=== PATIENT | male | born 1975 | race Hispanic/Latino ===

== ENCOUNTER 2020-02-12 09:55 | Emergency (ER) | payer OTHER ==
[2020-02-12] MEDS ORDERED: ASPIRIN 325 MG TAB PO ONE (10:00)
[2020-02-12 11:50] LABS: BUN/Creatinine Ratio 20; Blood Urea Nitrogen 16 mg/dL (9-20); Calcium 9.8 mg/dL (8.4-10.2); Hemolysis Index 5
[2020-02-12 12:12] LABS: Basophils # (Auto) 0.1 K/mm3 (0.0-0.1); Basophils % (Auto) 1.4 % (0.0-1.8); Eosinophils # (Auto) 0.1 K/mm3 (0.0-0.4); Eosinophils % (Auto) 2.4 % (0.0-4.3); Hematocrit 46.7 % (35.5-45.6); Mean Corpuscular HGB Conc 34 % (32-34); Mean Corpuscular Volume 92 fl (84-94); Monocytes # (Auto) 0.5 K/mm3 (0.0-0.8); Platelet Count 236 K/mm3 (140-440); Red Cell Distribution Width 12.9 % (13.2-15.2)
--- NOTE | 2020-02-12 12:29 | XRay Report ---
CHEST 2 VIEWS INDICATION: Chest Pain. COMPARISON: None. FINDINGS: Support devices: None. Heart: Within normal limits. Lungs/Pleura: No acute air space or interstitial disease. No significant pleural effusion. IMPRESSION: No acute findings. Signer Name: Arvind Apple MD Signed: 02/12/2020 12:24 PM Workstation Name: [id number]
--- NOTE | 2020-02-12 12:59 | Emergency Department Report ---
ED Chest Pain HPI - General Chief Complaint: Chest Pain Stated Complaint: CHEST PAINS Time Seen by Provider: 02/12/20 12:44 Source: patient Mode of arrival: Ambulatory Limitations: No Limitations - History of Present Illness Initial Comments: 44-year-old male states that he had approximately 2 hours of intermittent pinching sensation in his left breast. He denied any radiation. He states he had some slight heartburn as well. He denied nausea or vomiting. He denied dyspnea or sweating. He had no shortness of breath. He stated that the symptoms were not related to his breathing at all. He has not had recent cough or fever. Patient is an officer at a nearby facility. He states that he has been working out a lot for his physical coming up. He last worked out over the weekend. He states that his exercise tolerance was good. He does report that he has some slight tenderness in the left chest related to the workout perhaps. Patient denies any recent traveling. Has had no leg pain or swelling. He denies a family history of coronary artery disease or venous thromboembolism.. Patient states the chest sensation has resolved at the time of my encounter. MD Complaint: chest pain -: Gradual, hour(s) Onset: during rest Pain Location: left chest Pain Radiation: none Severity: mild, moderate Quality: other (A pinching sensation) Consistency: intermittent Improves With: nothing Worsens With: nothing re: denies: nausea, vomting, diaphoresis, dyspnea, sense of impending doom Treatments Prior to Arrival: none Aspirin use within the Past 7 Days: (0) No - Related Data Allergies Allergy/AdvReac Type Severity Reaction Status Date / Time No Known Allergies Allergy Unverified 02/12/20 10:00 Heart Score - HEART Score History: Slightly suspicious EKG: Normal Age: 45-65 Risk factors: 1-2 risk factors Troponin: < normal limit HEART Score: 2 - Critical Actions Critical Actions: 0-3 pts:0.9-1.7%risk of adverse cardiac event.Candidate for discharge ED Review of Systems ROS: Stated complaint: CHEST PAINS Other details as noted in HPI Constitutional: denies: chills, fever Eyes: denies: eye pain, eye discharge, vision change ENT: denies: ear pain, throat pain Respiratory: denies: cough, shortness of breath, wheezing Cardiovascular: chest pain. denies: palpitations Endocrine: no symptoms reported Gastrointestinal: denies: abdominal pain, nausea, diarrhea Genitourinary: denies: urgency, dysuria Musculoskeletal: denies: back pain, joint swelling, arthralgia Skin: denies: rash, lesions Neurological: denies: headache, weakness, paresthesias Psychiatric: denies: anxiety, depression Hematological/Lymphatic: denies: easy bleeding, easy bruising ED Past Medical Hx - Past Medical History Previous Medical History?: No - Surgical History Past Surgical History?: No - Family History Family history: no significant - Social History Substance Use Type: None ED Physical Exam - General Limitations: No Limitations General appearance: alert, in no apparent distress - Head Head exam: Present: atraumatic, normocephalic - Eye Eye exam: Present: normal appearance. Absent: scleral icterus - ENT ENT exam: Present: mucous membranes moist - Neck Neck exam: Present: normal inspection - Respiratory Respiratory exam: Present: normal lung sounds bilaterally, chest wall tenderness (Mild about the anterior shoulder girdle area). Absent: respiratory distress - Cardiovascular Cardiovascular Exam: Present: regular rate, normal rhythm. Absent: systolic murmur, diastolic murmur, rubs, gallop - GI/Abdominal GI/Abdominal exam: Present: soft, normal bowel sounds. Absent: distended, tenderness, guarding, rebound - Rectal Rectal exam: Present: deferred - Extremities Exam Extremities exam: Present: normal inspection, normal capillary refill. Absent: pedal edema, calf tenderness - Back Exam Back exam: Present: normal inspection - Neurological Exam Neurological exam: Present: alert, oriented X3, CN II-XII intact. Absent: motor sensory deficit - Psychiatric Psychiatric exam: Present: normal affect, normal mood - Skin Skin exam: Present: warm, dry, intact, normal color. Absent: rash ED Course Vital Signs 02/12/20 02/12/20 09:58 13:09 Temperature 97.9 F Pulse Rate 73 64 Respiratory 18 17 Rate Blood Pressure 146/97 Blood Pressure 130/86 [Left] O2 Sat by Pulse 96 99 Oximetry - Reevaluation(s) Reevaluation #1: I recommended to Mr. Gutierrez that he be admitted for a stress test. He has never had one before. He is low risk by heart score and PRIYANK for a cardiac event. However I have explained to him the limits of emergency department testing in this setting. I have asked him to be admitted. He declines. He has full mental capacity to make his own decisions regarding his disposition. I have strongly recommended close follow-up. I have also explained to him that he should return to the emergency department should he have persistent symptoms. Thus, I am not going to require him to sign out AGAINST MEDICAL ADVICE. 02/12/20 13:48 PRIYANK score - Priyank Score Age > 65: (0) No Aspirin use within the Past 7 Days: (0) No 3 or more CAD Risk Factors: (0) No 2 or more Angina events in past 24 hrs: (0) No Known CAD with more than 50% Stenosis: (0) No Elevated Cardiac Markers: (0) No ST Deviation Greater than 0.5mm: (0) No PRIYANK Score: 0 ED Medical Decision Making - Lab Data Result diagrams: 02/12/20 10:51 02/12/20 10:51 Laboratory Results - last 24 hr 02/12/20 02/12/20 10:51 10:51 WBC 5.3 RBC 5.10 H Hgb 16.0 H Hct 46.7 H MCV 92 MCH 31 MCHC 34 RDW 12.9 L Plt Count 236 Lymph % (Auto) 19.0 [place] % (Auto) 9.0 H Eos % (Auto) 2.4 Baso % (Auto) 1.4 Lymph # (Auto) 1.0 L [place] # (Auto) 0.5 Eos # (Auto) 0.1 Baso # (Auto) 0.1 Seg Neutrophils % 68.2 Seg Neutrophils # 3.6 Sodium 138 Potassium 3.9 Chloride 102.0 Carbon Dioxide 28 Anion Gap 12 BUN 16 Creatinine 0.8 Estimated GFR > 60 BUN/Creatinine Ratio 20 Glucose 99 Calcium 9.8 Troponin T < 0.010 - EKG Data -: EKG Interpreted by Me EKG shows normal: sinus rhythm, axis, intervals, QRS complexes, ST-T waves Rate: normal - EKG Data Interpretation: no acute changes - Radiology Data Radiology results: report reviewed No acute process Critical care attestation.: If time is entered above; I have spent that time in minutes in the direct care of this critically ill patient, excluding procedure time. ED Disposition Clinical Impression: Atypical chest pain Disposition: - TO HOME OR SELFCARE Is pt being admited?: No Does the pt Need Aspirin: No Condition: Stable Instructions: Chest Pain (ED), Nonspecific Chest Pain, Adult Additional Instructions: I would strongly recommend that you come back should you have any recurrent symptoms. In addition I would strongly recommend that you be seen in [facility] tomorrow for follow-up. A stress test is very appropriate in the circumstances. Feel free to return to our hospital for further care and e valuation since you have declined admission. I would recommend 1 aspirin a day. Time of Disposition: 13:51
[2020-02-12] MEDS ORDERED: ASPIRIN 325 MG TAB ONE (13:05)
[2020-02-12 13:10] VITALS: BP 130/86
== END 2020-02-12 14:00 | disposition home or self-care (01) ==
LOC: ED 09:55
DX: R07.89 Other chest pain (principal)
CPT/HCPCS: 36415; 71046; 80048; 84484; 85025; 99284